=== PATIENT | female | born 1955 | race Two or more races ===

== ENCOUNTER 2017-04-15 09:19 | Emergency (ER) | payer MEDICAID ==
[2017-04-15 09:32] VITALS: RESP 18; TEMP 98.1
[2017-04-15 09:44] VITALS: BP 150/91; PULSE 91; O2SAT 94
--- NOTE | 2017-04-15 09:46 | EDPHY ---
H & P Time Seen by Provider: 04/15/17 09:31 HPI/ROS: CHIEF COMPLAINT: Right groin lesion HISTORY OF PRESENT ILLNESS: Patient is a 62-year-old diabetic who presents to the emergency department with a bump on her right medial thigh. She noticed a bump 4 days ago. History day burst open and drained. It is now improved. There is decreased redness and pain. Patient denies fevers or chills. Her glucoses ranged between 180 and 210. REVIEW OF SYSTEMS: My complete review of systems is negative except as mentioned in the HPI. Past Medical/Surgical History: Includes diabetes mellitus Smoking Status: Current every day smoker Physical Exam: Vitals noted General Appearance: Alert and no distress. Head: Pupils equal. Normal. Respiratory: clear to auscultation bilaterally. Cardiac: regular rate and rhythm. Extremities: patient's right medial groin has a small area of discoloration that appears to be a drained fluid collection. There is no fluctuance. No tenderness to palpation. no surrounding erythema. The rest of her extremities appear normal. Neurovascular intact distally Skin: No rashes or lesions. Neuro: Alert. Normal mood and affect. Constitutional: Initial Vital Signs Temperature (C) 36.7 C 04/15/17 09:30 Heart Rate 97 04/15/17 09:30 Respiratory Rate 18 04/15/17 09:30 Blood Pressure 171/103 H 04/15/17 09:30 O2 Sat (%) 91 L 04/15/17 09:30 O2 Delivery Mode Room Air Allergies/Adverse Reactions: Penicillins Allergy (Verified 04/15/17 09:30) Home Medications: Medication Instructions Recorded Doxycycline Hyclate 100 mg PO BID 5 Days tab 04/15/17 Metformin HCl 04/15/17 Medical Decision Making ED Course/Re-evaluation: In the emergency department I discussed possible etiologies with the patient. I answered all her questions. She is given warnings prior to leaving. She will be given a short course of doxycycline. Differential Diagnosis: My differential includes but is not limited to abscess, cellulitis, folliculitis Appears the patient's symptoms have mostly resolved after draining yesterday. Departure - Departure Disposition: Home, Routine, Self-Care Clinical Impression: Abscess Condition: Good Instructions: Abscess (ED) Additional Instructions: Take your antibiotics as directed. Return with increasing mass, redness, pain, fever or any other concerns. Referrals: [facility] [Other] - 2-3 days, call for appt. Prescriptions: Doxycycline Hyclate 100 mg PO BID 5 Days tab
== END 2017-04-15 09:52 | disposition home or self-care (01) ==
LOC: CED 09:19
DX: L02.214 Cutaneous abscess of groin (principal); E11.9 Type 2 diabetes mellitus without complications; F17.200 Nicotine dependence, unspecified, uncomplicated; Z79.84 Long term (current) use of oral hypoglycemic drugs